=== PATIENT | male | born 1960 | race Caucasian/White ===

== ENCOUNTER 2017-08-21 22:37 | Emergency (ER) | payer MEDICARE ==
[2017-08-21] MEDS ORDERED: Ciprofloxacin 500 MG Tab PO ONE (23:31)
--- NOTE | 2017-08-21 23:34 | EDM.PDOC ---
ED HPI GENERAL MEDICAL PROBLEM - General Chief Complaint: Genitourinary Problem Stated Complaint: UTI Time Seen by Provider: 08/21/17 23:24 Source of Information: Reports: Patient, RN Notes Reviewed - History of Present Illness INITIAL COMMENTS - FREE TEXT/NARRATIVE: Bladder infection: this is a 57 year old male presents to ER with concerns of bladder pain, urgency, with fever. He reports has recurrent bladder infections, has symptoms for the past two days. Onset: Gradual Onset Date: 08/20/17 Duration: Day(s): (two) Location: Reports: Abdomen Quality: Reports: Same as Previous Episode Severity: Moderate Improves with: Reports: None Worsens with: Reports: Other (voiding) Associated Symptoms: Reports: Fever/Chills Bladder Pain Score (Numeric/FACES): 4 - Related Data Allergies Allergy/AdvReac Type Severity Reaction Status Date / Time No Known Allergies Allergy Verified 08/21/17 23:10 Home Meds: Home Meds oxyCODONE HCl/Acetaminophen [Oxycodone-Acetaminophen 5-325] 1 tab PO Q6H [History] Past Medical History Gastrointestinal History: Reports: Other (See Below) Other Gastrointestinal History: chrons Genitourinary History: Reports: UTI, Recurrent Other Musculoskeletal History: Multiple fx - Infectious Disease History Infectious Disease History: Reports: Chicken Pox, Measles, Mumps Social & Family History - Tobacco Use Smoking Status *Q: Current Some Day Smoker Years of Tobacco use: 30 Packs/Tins Daily: 0 Used Tobacco, but Quit: No Second Hand Smoke Exposure: Yes - Caffeine Use Caffeine Use: Reports: Soda - Recreational Drug Use Recreational Drug Use: No ED ROS GENERAL - Review of Systems Review Of Systems: See Below Constitutional: Reports: Fever, Chills HEENT: Reports: No Symptoms Respiratory: Reports: No Symptoms Cardiovascular: Reports: No Symptoms Endocrine: Reports: No Symptoms GI/Abdominal: Reports: No Symptoms : Reports: Dysuria, Frequency, Hematuria, Pain, Urgency Musculoskeletal: Reports: No Symptoms Skin: Reports: No Symptoms Neurological: Reports: No Symptoms Psychiatric: Reports: No Symptoms Hematologic/Lymphatic: Reports: No Symptoms Immunologic: Reports: No Symptoms ED EXAM, GI/ABD - Physical Exam Exam: See Below Exam Limited By: No Limitations General Appearance: Alert, WD/WN, Mild Distress Neck: Normal Inspection, Supple, Non-Tender, Full Range of Motion Respiratory/Chest: No Respiratory Distress, Lungs Clear, Normal Breath Sounds, No Accessory Muscle Use, Chest Non-Tender, Wheezing Cardiovascular: Normal Peripheral Pulses, Regular Rate, Rhythm, No Edema, No Gallop, No JVD, No Murmur, No Rub GI/Abdominal Exam: Soft, Other (mild pain with palpation over bladder. no flank pain) (Male) Exam: Deferred Rectal (Males) Exam: Deferred Back Exam: Normal Inspection Psychiatric: Normal Affect, Normal Mood Lymphatic: No Adenopathy Course - Vital Signs Last Recorded V/S: Last Vital Signs Temp 38.1 C 08/21/17 23:17 Pulse 94 08/21/17 23:17 Resp 12 08/21/17 23:17 BP 123/74 08/21/17 23:17 Pulse Ox 97 08/21/17 23:17 - Orders/Labs/Meds Orders: Active Orders 24 hr Category Date Time Status CULTURE URINE [RM] Stat Lab 08/21/17 23:35 Ordered UA W/MICROSCOPIC [URIN] Urgent Lab 08/21/17 23:02 Ordered Labs: Laboratory Tests 08/21/17 Range/Units 23:02 Urine Color Yellow Urine Appearance Cloudy Urine pH 5.0 (4.5-8.0) Ur Specific [place] 1.020 (1.008-1.030) Urine Protein 30 H (NEGATIVE) mg/dL Urine Glucose (UA) Normal (NEGATIVE) mg/dL Urine Ketones Negative (NEGATIVE) mg/dL Urine Occult Blood Large (NEGATIVE) Urine Nitrite Negative (NEGAITVE) Urine Bilirubin Negative (NEGATIVE) Urine Urobilinogen Normal (NORMAL) mg/dL Ur Leukocyte Esterase Large (NEGATIVE) Urine RBC 20-30 H (0-5) Urine WBC >100 H (0-5) Ur Epithelial Cells Few Amorphous Sediment Not seen Urine Bacteria Moderate Urine Mucus Not seen Urine Other Meds: Medications Discontinued Medications Generic Name Dose Route Start Last Admin Trade Name Freq PRN Reason Stop Dose Admin Ciprofloxacin 500 mg 08/21/17 23:31 Ciprofloxacin Hcl PO 08/21/17 23:32 ONETIME ONE - Re-Assessments/Exams Free Text/Narrative Re-Assessment/Exam: 08/21/17 23:41 urine +WBC, +RBC will give Cipro 500mg po now, given script for Cipro 500mg po bid x 10 days , due to recurrent uti advised to follow up with Primary Care Provider Departure - Departure Time of Disposition: 23:45 Disposition: Home, Self-Care 01 Condition: Good Clinical Impression: UTI, Urinary tract infectious disease - Discharge Information Instructions: Urinary Tract Infection, Adult Referrals: Stuart Reynaga MD [Primary Care Provider] - Forms: ED Department Discharge Care Plan Goals: Urinary Tract Infection -Cipro 500mg po bid til gone -urine culture pending -follow up with Primary Care Provider for recheck in 7 to 10 days return to ER for increased pain, fever, chills, nausea, vomiting,rash or not improved. - Problem List & Annotations (1) UTI, Urinary tract infectious disease SNOMED Code(s): 50555935 Code(s): N39.0 - URINARY TRACT INFECTION, SITE NOT SPECIFIED Status: Acute Priority: High Current Visit: Yes - Problem List Review Problem List Initiated/Reviewed/Updated: Yes - My Orders Last 24 Hours: My Active Orders 08/21/17 23:35 CULTURE URINE [RM] Stat - Assessment/Plan Last 24 Hours: My Active Orders 08/21/17 23:35 CULTURE URINE [RM] Stat Plan: Urinary Tract Infection -Cipro 500mg po bid til gone -urine culture pending -follow up with Primary Care Provider for recheck in 7 to 10 days return to ER for increased pain, fever, chills, nausea, vomiting,rash or not improved.
== END 2017-08-21 23:44 | disposition home or self-care (01) ==
LOC: JP.ED 22:37
DX: N39.0 Urinary tract infection, site not specified (principal); F17.210 Nicotine dependence, cigarettes, uncomplicated
CPT/HCPCS: 81001; 87086; 87088; 87186; 99284; A9270-GY

== ENCOUNTER 2023-04-08 18:01 | Emergency (ER) | payer MEDICARE | END 2023-04-08 19:34 | disposition home or self-care (01) | LOC: JP.ED 18:01 | DX: I63.512 Cerebral infarction due to unspecified occlusion or stenosis of left middle cerebral artery (principal); Z87.891 Personal history of nicotine dependence | CPT/HCPCS: 70450; 99284 ==